=== PATIENT | female | born 1995 | race Caucasian/White ===

== ENCOUNTER 2018-12-07 11:56 | Emergency (ER) | payer SELFPAY ==
[~2018-12-07] VITALS: Ht 172.7 cm; Wt 71.2 kg
--- NOTE | 2018-12-07 12:05 | NUR ---
Dr Jones at the bedside for MSE.
[2018-12-07] MEDS ORDERED: AMPH10CA3 PO (12:13)
[2018-12-07] MEDS ORDERED: AMPH20CA3 PO (12:13)
[2018-12-07] MEDS ORDERED: [UNRECOGNIZED DRUG - REMARK] (12:13)
[2018-12-07] MEDS ORDERED: IV NORMAL SALINE 1000 ML BAG IV ONE (12:15)
[2018-12-07] MEDS ORDERED: KETOROLAC TROMETHAMINE 15 MG INJ IV ONE (12:15)
[2018-12-07] MEDS ORDERED: ONDANSETRON 4 MG/2 ML VIAL IV ONE (12:15)
[2018-12-07] MEDS ORDERED: KETOROLAC TROMETHAMINE 15 MG INJ ONE (12:29)
[2018-12-07] MEDS ORDERED: ONDANSETRON 4 MG/2 ML VIAL ONE (12:29)
[2018-12-07 13:44] VITALS: BP 112/71
--- NOTE | 2018-12-07 13:44 | NUR ---
IV removed. Catheter intact and site benign. Pressure and 4x4 gauze applied to site. No bleeding noted.
== END 2018-12-07 13:45 | disposition home or self-care (01) ==
LOC: ER 11:57
DX: L55.0 Sunburn of first degree (principal); R11.2 Nausea with vomiting, unspecified; R10.9 Unspecified abdominal pain; Z88.5 Allergy status to narcotic agent; Z79.899 Other long term (current) drug therapy
CPT/HCPCS: 96361; 96374; 96375; 99283; J1885; J2405; A4663; J7030